=== PATIENT | female | born 1955 | race Caucasian/White ===

== ENCOUNTER → 2017-09-22 | Outpatient (CLI) | payer BC ==
[~2017-09-22] MED LIST: ASPI-1471 PO
[2017-09-22 10:26] LABS: PLATELET COUNT, AUTOMATED 209 K/uL (150-450)
[2017-09-22 10:53] LABS: LDL CHOLESTEROL 144 mg/dl
== END ==
LOC: LAB 09:22
PROVIDERS: ATTEND Emergency Medicine
DX: Z00.00 Encounter for general adult medical examination without abnormal findings (principal)
CPT/HCPCS: 36415; 82040; 82247; 82310; 82374; 82435; 82465; 82565; 82947; 83718; 84075; 84132; 84155; 84295; 84450; 84460; 84478; 84520; 85025